=== PATIENT | female | born 1990 | race African-American/Black ===

== ENCOUNTER 2017-01-31 22:48 | Inpatient (IN) ==
[2017-02-01] MEDS: LR 1,000 ML IV SCH ×3 (00:30→11:00)
[2017-02-01] MEDS ORDERED: PITOCIN 30 UNITS/LR 30 UNITS/500 ML IV.SOLN IV SCH (00:32)
[2017-02-01] MEDS ORDERED: TYLENOL PO PRN (00:32)
[2017-02-01] MEDS ORDERED: STADOL IV PRN (00:32)
[2017-02-01] MEDS ORDERED: PEPCID IV PRN (00:32)
[2017-02-01] MEDS ORDERED: PEPCID PO PRN (00:32)
[2017-02-01] MEDS ORDERED: KEFZOL 1 GM/D5W 1 GM/50 ML IVPB IV PRN (00:32)
[2017-02-01 00:40] LABS: URINE SOURCE VOIDED
[2017-02-01 00:42] LABS: MANUAL DIFF NEEDED? NO
[2017-02-01 00:44] LABS: BASO% 0.2 % (0.0-0.8); EOS# 0.13 X1000 (0.0-0.7); EOS% 1.2 % (0.0-10.0); HEMATOCRIT 29.5 % (37.0-47.0); IMM GRAN# 0.06 X1000 (0.0-0.04); IMM GRAN% 0.6 % (0.0-0.5); LYMPH# 2.77 X1000 (1.2-3.4); LYMPH% 25.7 % (20.5-51.1); MCH 29.9 PG (27-31); MCHC 33.9 g/dL (33-37); MCV 88.1 FL (81-99); MONO# 0.95 X1000 (0.11-0.59); MONO% 8.8 % (1.7-9.3); MPV 11.7 FL (7.4-10.4); NEUT% 63.5 % (42.2-75.2); PLT 227 X1000 (130-400); RBC 3.35 XMIL (4.2-5.4)
[2017-02-01] MEDS ORDERED: SODIUM CHLORIDE 0.9% INJ SCH (00:45)
[2017-02-01 00:58] LABS: BILIRUBIN URINE NEGATIVE (NEGATIVE); BLOOD URINE 2+ (NEGATIVE); GLUCOSE URINE NEGATIVE (NEGATIVE); LEUKOCYTES URINE 2+ (NEGATIVE); NITRITE URINE NEGATIVE (NEGATIVE); PROTEIN URINE 2+(100 mg/dL) mg/dL (NEGATIVE); UROBILINOGEN URINE NORMAL
[2017-02-01 00:59] LABS: CLARITY VERY CLOUDY (CLEAR); COLOR YELLOW
[2017-02-01] MEDS: ZOFRAN IV PRN ×3 (01:06→14:20)
[2017-02-01] MEDS ORDERED: MARCAINE 0.25% PF ONE (01:31)
[2017-02-01] MEDS ORDERED: FENTANYL-BUPIV-NS 2 MCG-0.1% 200 ML EPIDURAL PRN (01:44)
[2017-02-01] MEDS ORDERED: MARCAINE 0.25% PF INJ PRN (01:46)
[2017-02-01 03:49] LABS: UR AMPHETAMINES QUAL NONE DETECTED (NONE DETECT); UR BARBITUATES QUAL NONE DETECTED (NONE DETECT); UR BENZODIAZEPIN QUAL NONE DETECTED (NONE DETECT); UR CANNABINOIDS QUAL NONE DETECTED (NONE DETECT); UR COCAINE QUAL NONE DETECTED (NONE DETECT); UR MDMA QUAL NONE DETECTED (NONE DETECT); UR METHADONE QUAL NONE DETECTED (NONE DETECT); UR METHAMPHETAMINE QUAL NONE DETECTED (NONE DETECT); UR OPIATES QUAL NONE DETECTED (NONE DETECT); UR OXYCODONE QUAL NONE DETECTED (NONE DETECT); UR PCP QUAL NONE DETECTED (NONE DETECT); UR TCA QUAL NONE DETECTED (NONE DETECT)
[2017-02-01] MEDS ORDERED: MINERAL OIL PO PRN ×2 (14:58→16:17)
[2017-02-01] MEDS ORDERED: CYTOTEC PO PRN (16:17)
[2017-02-01] MEDS ORDERED: HYDROXYZINE IM PRN (16:17)
[2017-02-01] MEDS ORDERED: BENADRYL IV PRN (16:17)
[2017-02-01] MEDS ORDERED: PERI MEDS (DERMOPLAST/NUPERCAINAL/TUCKS) MISC PRN (16:17)
[2017-02-01] MEDS ORDERED: XYLOCAINE-MPF 1% INJ PRN (16:17)
[2017-02-01] MEDS ORDERED: BENADRYL PO PRN (16:17)
[2017-02-01] MEDS ORDERED: HYDROXYZINE PO PRN (16:17)
[2017-02-01] MEDS ORDERED: NORCO-5 PO PRN (16:17)
[2017-02-01] MEDS ORDERED: AMBIEN PO PRN (16:17)
[2017-02-01] MEDS ORDERED: M-M-R II VACCINE SUBQ ONE (16:17)
[2017-02-01] MEDS ORDERED: PITOCIN 20 UNITS/LR 20 UNITS/1,000 ML IV.SOLN IV SCH (16:17)
[2017-02-01] MEDS ORDERED: PITOCIN 30 UNITS/LR 30 UNITS/500 ML IV.SOLN IV ONE (16:17)
[2017-02-01] MEDS ORDERED: BOOSTRIX VACCINE IM ONE (16:17)
[2017-02-01] MEDS ORDERED: PITOCIN IM PRN (16:17)
--- NOTE | 2017-02-01 16:55 | OPERATIVE NOTE ---
PROCEDURE DATE: 08/04/2016 DESCRIPTION OF PROCEDURE: The patient underwent sterile controlled spontaneous vaginal delivery of a viable male , weighing 6 pounds 4 ounces, with Apgars of 7 and 9. No nuchal, less then 60 second dystocia relieved with suprapubic pressure. McRobert's and delivery of anterior shoulder. Right shoulder noted to the anterior. Cord doubly clamped and cut, and infant handed off to awaiting pediatric staff. Placenta delivered spontaneously and intact. Uterus firm with Pitocin and massage. Uterus, cervix and vagina were explored and a left vaginal laceration noted repaired with 3-0 chromic in the normal fashion hemostatic. ESTIMATED BLOOD LOSS: 250 mL. COMPLICATIONS: None. cc: MD Kirk Rodrigez MD
[2017-02-01] MEDS: PERICOLACE PO SCH (20:23)
[2017-02-02] MEDS: MOTRIN PO PRN ×2 (00:29→20:48)
[2017-02-02 05:46] LABS: HEMATOCRIT 28.5 % (37.0-47.0); HEMOGLOBIN 9.4 g/dL (12.0-16.0); MCV 91.1 FL (81-99); MPV 11.6 FL (7.4-10.4); RBC 3.13 XMIL (4.2-5.4)
--- NOTE | 2017-02-02 12:32 | PROGRESS NOTE ---
DATE: 02/02/2017 She is day 1 and she is without complaints. She is tolerating p.o. She is voiding. She is ambulating. She is resting quietly with her child at this point. Vital signs are stable. She is afebrile. Pulse rate is around 100. She is alert and cooperative, in no acute distress. Neck: Is supple. Lungs: Clear. Heart: Regular sinus rhythm. Abdomen: Is slightly distended. Uterus: Is firm. LABORATORY VALUES: Hemoglobin and hematocrit of 9/28 down slightly from 10 pre delivery. ASSESSMENT: day 1. PLAN: Routine care. cc: MD Kirk Narvaez MD
[2017-02-02] MEDS: PERICOLACE PO SCH (20:35)
[2017-02-02] MEDS: NORCO-10 PO PRN (20:48)
[2017-02-03] MEDS: NORCO-10 PO PRN (06:13)
[2017-02-03 08:51] VITALS: BP 155/89
== END 2017-02-03 11:30 | disposition home or self-care (01) ==
LOC: P.OPLD 22:48 → P.LD 22:54 → P.WC 02-01 18:00
PROVIDERS: ADMIT Obstetrics & Gynecology; ATTEND Obstetrics & Gynecology